=== PATIENT | female | born 1990 | race American Indian/Alaskan Native ===

== ENCOUNTER 2019-01-25 12:06 | Outpatient (CLI) | payer OTHER | END 2019-01-25 12:10 | disposition home or self-care (01) | LOC: RAD 12:06 | DX: M54.89 Other dorsalgia (principal); M25.531 Pain in right wrist ==

== ENCOUNTER → 2019-04-12 10:09 | Outpatient (CLI) | payer OTHER | END | disposition home or self-care (01) | LOC: LAB 10:09 | DX: J11.1 Influenza due to unidentified influenza virus with other respiratory manifestations (principal); R05 Cough ==

== ENCOUNTER 2019-05-10 14:22 | Outpatient (CLI) | payer OTHER | END 2019-05-10 14:27 | disposition home or self-care (01) | LOC: SONOGRAMA 14:22 | DX: R10.2 Pelvic and perineal pain (principal) ==

== ENCOUNTER 2022-03-30 10:48 | Emergency (ER) | payer BC ==
[~2022-03-30] VITALS: Ht 165.1 cm; Wt 97.5 kg
[2022-03-30] MEDS ORDERED: METRONIDAZOLE500 MG PO (11:01)
[2022-03-30] MEDS ORDERED: CIPRO500 MG PO (13:25)
== END 2022-03-30 13:31 | disposition home or self-care (01) ==
LOC: ER 10:48
DX: N39.0 Urinary tract infection, site not specified (principal)